=== PATIENT | female | born 1960 | race African-American/Black ===

== ENCOUNTER 2017-03-30 09:01 | Day surgery (SDC) | payer MEDICARE, MEDICAID ==
--- NOTE | 2017-03-30 07:21 | History and Physical Report ---
DATE: 03/30/2017. CHIEF COMPLAINT AND HISTORY OF CHIEF COMPLAINT: This patient was initially on the schedule dated February 24, 2017, for an implanted spinal catheter trial with hydromorphone to determine if the procedure would be of help with pain control. She had abnormal laboratory studies and this had to be rescheduled. Her pain is an intractable radiculitis. There have been no changes in her history and no injuries. Her diagnostics did show diffuse disc abnormalities and multilevel spondylosis. Her treatment history has been extensive and unsuccessful. She had a laminectomy stimulator placed in the past with no effect. PAST MEDICAL HISTORY: Hypertension, asthmatic bronchitis, blood disorder unknown. MEDICATIONS ON ADMISSION: To be provided. ALLERGIES: None listed. REVIEW OF SYSTEMS: The patient seems appropriate and in no acute distress. The remainder of the systems review shows headaches, asthmatic bronchitis, irregular heartbeat, degenerative arthritis, difficulty sleeping. SOCIAL HISTORY: Noncontributory. FAMILY HISTORY: Gastrointestinal disease. EMPLOYMENT STATUS: Off work. PHYSICAL EXAMINATION: General: Height and weight are not known. Vital Signs: Unavailable. HEENT: Within normal limits. Lungs: Clear. Heart: Regular rate and rhythm. Abdomen: Nontender. Musculoskeletal: Examination of the musculoskeletal system shows diffuse tenderness throughout the lumbar spine. Range of motion causes pain into both legs, somewhat more right than left. Ambulation: No assistive device utilized. Neurologic: Cranial nerves are intact. IMPRESSION: INTRACTABLE LUMBAR RADICULITIS, ICD-10 CODE M54.16 AND M54.17. PLAN: The patient is here for an implanted spinal catheter infusion trial with hydromorphone to determine if the implantation of a permanent system can be of any value in pain control. The potential risks, side effects, and complications including spinal cord injury, nerve root injury, and paralysis have all been discussed and reviewed. The patient understands, consents, and wants to move forward. An overnight stay will be evaluated because a dural puncture will be required with an epidural blood patch. This will require the patient remain flat for four hours and then slowly elevated for one hour. If during that period of time she is stable, she will be discharged. Otherwise she will be kept overnight for observation. ESE HECTOR, D.O. Date & Time JOB NUMBER: [id number] cc: Mason White
[~2017-03-30 09:01] MED LIST: ACETAMINOPHEN 1,000 MG/100 ML BTL IV ONE; CEFAZOLIN 2 Gram 2 GM/50 ML BAG IVPB ONE; FAMOTIDINE 20MG TABLET PO ONE; HYDROMORPHONE PF 2MG/ML AMP 0.004 MG in 0.9 % SODIUM CHLORIDE 10ML VIA 0.998 ML IV ONE; HYDROMORPHONE PF 2MG/ML AMP 2 MG in 0.9 % SODIUM CHLORIDE 500ML 499 ML IV ONE; MECLIZINE 25 MG TABLET PO ONE; METOCLOPRAMIDE 10 MG TABLET PO ONE
[2017-03-30] MEDS ORDERED: DIPHENHYDRAMINE HCL 25 MG CAPSULE PO PRN ×2 (13:03)
[2017-03-30] MEDS ORDERED: TEMAZEPAM 15 MG CAPSULE PO PRN ×2 (13:03)
[2017-03-30] MEDS ORDERED: ACETAMINOPHEN 325 MG TAB PO PRN ×2 (13:03)
[2017-03-30] MEDS ORDERED: RINGERS SOLUTION,LACTATED 1,000 ML IV SCH (13:03)
[2017-03-30] MEDS ORDERED: HYDROMORPHONE HCL 2 MG/ML VIAL IM PRN (13:03)
[2017-03-30] MEDS ORDERED: HYDROCODONE/APAP 7.5/325MG TABLET PO PRN ×2 (13:03)
[2017-03-30] MEDS ORDERED: METOCLOPRAMIDE HCL 10 MG/2 ML VIAL IVP PRN (13:03)
[2017-03-30] MEDS ORDERED: SENNOSIDES/DOCUSATE SODIUM UD CAPSULE PO PRN ×2 (13:03)
[2017-03-30] MEDS ORDERED: HYDROMORPHONE HCL 1 MG/ML CPJ IM PRN (13:03)
[2017-03-30] MEDS ORDERED: AL HYDROX/MAG HYDROX 30ML UD PO PRN (13:03)
[2017-03-30] MEDS ORDERED: DIPHENHYDRAMINE HCL IV 50 MG/ML VIAL IVP PRN ×2 (13:03)
[2017-03-30] MEDS ORDERED: METOCLOPRAMIDE 10 MG TABLET PO PRN (13:03)
[2017-03-30] MEDS ORDERED: OXYCODONE/APAP 10MG-325MG TABLET PO PRN (13:03)
[2017-03-30] MEDS ORDERED: NALOXONE 0.4 MG/1 ML VIAL IVP PRN (13:03)
[2017-03-30] MEDS ORDERED: ALBUTEROL HFA 8 GM INHALER INH PRN (13:04)
[2017-03-30] MEDS ORDERED: MIDAZOLAM HCL 2MG/2ML VIAL IV ONE (14:00)
[2017-03-30] MEDS ORDERED: PROPOFOL 10 MG/ML VIAL IV ONE (14:00)
[2017-03-30] MEDS ORDERED: FENTANYL PF 100MCG/2ML VIAL IV ONE (14:00)
[2017-03-30] MEDS ORDERED: *PACU ONLY* KETAMINE HCL 10 MG/ML (20ML) VIAL IV ONE (14:00)
[2017-03-30] MEDS ORDERED: LIDOCAINE 2% MDV (20MG/ML) 20ML VIAL IV ONE (14:00)
[2017-03-30] MEDS ORDERED: RINGERS SOLUTION,LACTATED 1,000 ML IV PRN (15:03)
[2017-03-30] MEDS ORDERED: BUPIVACAINE 0.5% W/EPI MPF 30 ML VIAL IVP ONE (16:05)
[2017-03-30] MEDS ORDERED: CEFAZOLIN 1G VIAL IM ONE (16:05)
[2017-03-30] MEDS ORDERED: LIDOCAINE 1% W/EPI 1:200,000 MPF 30ML SQ ONE (16:05)
[2017-03-30] MEDS: OXYCODONE/APAP 10MG-325MG TABLET PO PRN ×2 (17:54→18:56)
[2017-03-30] MEDS: CEFAZOLIN 2 Gram 2 GM/50 ML BAG IVPB SCH (20:16)
--- NOTE | 2017-03-30 20:42 | Operative Note - Ferro ---
DATE OF SURGERY: 03/30/17 PREOPERATIVE DIAGNOSES: 1. 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 2. LUMBAR RADICULIITS ICD-10 CODE = M54.16 AND M54.17. OPERATION: 1. FLUOROSCOPIC-GUIDED EPIDURAL ACCESS AT L2-3, PLACEMENT OF THIN-WALLED SPINAL CATHETER T-11. 2. DIAGNOSTIC MYELOGRAPHY WITH RADIOLOGIC SUPERVISION AND INTERPRETATION. 3. SPINAL OPIOID BOLUS HYDROMORPHONE 0.002 MG SPINAL SPACE. 4. INCISION, SUBCUTANEOUS DISSECTION, AND ANCHORING SPINAL CATHETER TO SUPRASPINOUS FASCIA USING ANCHORING DEVICE AND NONABSORBABLE SUTURE. 5. TUNNELING BETWEEN MIDLINE SPINAL CATHETER SITE AND RIGHT POSTERIOR SUPERIOR GLUTEAL MARGIN WITH CREATION OF SMALL SUBCUTANEOUS POUCH, TUNNELING CATHETER INTO POUCH. 6. RESECTING AND INTERFACING INDWELLING SPINAL CATHETER WITH SECOND CATHETER COMPONENT BY WAY OF CONNECTOR. TUNNELING SECOND CATHETER COMPONENT SUPERIOR 6 CM , EXITING SKIN. 7. INTERFACE EXTERNAL CATHETER WITH EXTERNAL INFUSION PUMP SET TO DELIVER HYDROMORPHONE AT 0.04 MG A DAY. 8. CLOSURE OF MIDLINE INCISION WITH VICRYL FOR FASCIA, RUNNING SUBCUTICULAR VICRYL FOR SKIN, DERMABOND CLOSURE. 9. CLOSURE OF RIGHT POSTERIOR POUCH WITH NYLON SUTURE. 10. EPIDURAL BLOOD PATCH 10 ML AUTOLOGOUS BLOOD DRAWN STERILE TECHNIQUE FROM LEFT ANTECUBITAL. SURGEON: ESE YOUNG D.O. ANESTHESIA: LOCAL SEDATION. ANESTHESIA PROVIDER: CLIFTON VELASQUEZ CRNA INDICATIONS: This patient presents with a history of intractable postlaminectomy radiculitis. Diagnostics confirming laminectomy at 4-5 and 5-1. She is here due to the failure of all therapy for an implanted spinal catheter infusion trial with Hydromorphone. The implanted catheter technique will be used to minimize side effects including dural puncture and spinal headaches as well as minimize the number of penetrations into the spinal space required. PROCEDURE: Intravenous line, vital sign monitoring, IV sedation, prepped and draped with sterile technique. Under imaging, above the laminectomy, the spinal interspace at L2-3 was marked, infiltrated using a #20 gauge spinal needle, paramedian approach, bevel with long axis inserted under AP and lateral imaging into the spinal space. No fasciculations noted. With CSF, a thin-walled spinal catheter was advanced, positioned at T11. Diagnostic myelography was performed. Resulting flow characteristics were smooth and linear in the space. With this confirmation, appropriate catheter with administration of bolus Hydromorphone 0.002 mg into the spinal space. The skin above and below the needle infiltrated , incision made and subcutaneous dissection was conducted to the supraspinous fascia. The needles were removed after a purse string suture to stop CSF leak was performed. The catheter was anchored to the supraspinous fascia using an anchoring device and nonabsorbable suture. The catheter was clamped to stop CSF leak. The skin above and below the needle infiltrated, incision made and subcutaneous dissection was used to widen the site for further pouch for anchoring of the catheter. At the right posterior gluteal margin, a site picked by the patient, skin infiltrated, incision made and subcutaneous dissection was conducted to form a small pouch. A tunneling tool was then used to carry the spinal catheter into the posterior pouch. The primary catheter was then interfaced with the second catheter by way of a connector. The second catheter was tunneled from this posterior pouch superior 6 cm exiting the skin. The midline incision was then closed with Vicryl for fascia, running subcuticular Vicryl for skin. The posterior gluteal pouch was then closed with nylon suture. The externalized catheter was then interfaced to an external pump, which was set to deliver Hydromorphone at 0.04 mg a day. At L3-4, which was one level below the dural puncture for the catheter and above the laminectomy, skin was infiltrated and an #18 gauge Tuohy needle with [id number] into the epidural space. 10 mL of autologous blood was drawn using sterile technique from the left antecubital. This blood was placed onto the field by using a sterile technique. An epidural blood patch was then performed with this blood with this specimen. Needle removed. Dressing was placed to secure the catheter. All components under sterile dressing. She was transported to the Recovery Room , pillow under head and knees flat. She will stay flat for four hours, slowly elevated for one of them and be evaluated for discharge. She tolerated the procedure without difficulty. DISCHARGE INSTRUCTIONS: 1. The sites are to remain clean and dry. No showering or bathing in any way that would disrupt dressings. If it happens, contact the Clinic for reinforcing. 2. Spinal opioid side effects including respiratory depression, nausea, vomiting , constipation, urinary retention, lightheadedness, or rash have been discussed and reviewed. 3. Standard medications resumed including Levaquin, the antibiotic, 500 mg once a day for 14 days. 4. The patient will be seen in the office in the next three to five days for probable increase. We will evaluate side effects at that time. All other instructions provided with numbers to contact if problems given. She will be discharged. cc: Dr. Nassar JOB NUMBER: [id number] MTDD
[2017-03-30] MEDS ORDERED: DIAZEPAM 5 MG TABLET PO SCH (22:00)
[2017-03-31] MEDS: OXYCODONE/APAP 10MG-325MG TABLET PO PRN ×2 (00:39→08:28)
[2017-03-31] MEDS: CEFAZOLIN 2 Gram 2 GM/50 ML BAG IVPB SCH (02:30)
[2017-03-31] MEDS ORDERED: UMECLIDINIUM BROMIDE (INCRUSE) 62.5MCG IH SCH (10:00)
--- NOTE | 2017-03-31 13:25 | RADIOLOGY REPORT ---
EXAM: AP LUMBAR SPINE HISTORY: PAIN PUMP TRIAL. TECHNIQUE: AP view of the lumbar spine was obtained. Comparison: None. FINDINGS: Pain pump catheter enters the lumbar spinal canal and extends cephalad to the mid T11 level. IMPRESSION: PAIN PUMP CATHETER TIP AT THE MID T11 LEVEL. JOB NUMBER: [id number] MTDD
== END 2017-03-31 09:00 | disposition home or self-care (01) ==
LOC: SUR 09:01 → MEDSURG 14:10 → SUR 03-31 09:21
PROVIDERS: ATTEND Pain Medicine Interventional Pain Medicine
DX: M96.1 Postlaminectomy syndrome, not elsewhere classified (principal); M54.16 Radiculopathy, lumbar region; M54.17 Radiculopathy, lumbosacral region; J44.9 Chronic obstructive pulmonary disease, unspecified; I10 Essential (primary) hypertension; F17.200 Nicotine dependence, unspecified, uncomplicated
CPT/HCPCS: 62350; 00630; 72020; 94640; Q9967; J3490; J3010; J0690 ×2; J1170; J7040

== ENCOUNTER 2017-04-13 06:43 | Day surgery (SDC) | payer MEDICARE, MEDICAID ==
--- NOTE | 2017-04-12 20:19 | History and Physical Report ---
DATE: 04/12/2017. CHIEF COMPLAINT AND HISTORY OF CHIEF COMPLAINT: This patient presents with a history of an intractable lumbar radiculitis which failed all conservative therapies. An implanted spinal catheter infusion trial with hydromorphone is ongoing with a current base rate of 0.18 mg delivered dose per day. Her pain level has dropped greater than 75 percent. Due to the failure of all therapies and the success of the implanted spinal catheter trial, she presents today for implantation of a permanent system. PAST MEDICAL HISTORY: Hypertension, asthmatic bronchitis, nonspecific blood disorder. MEDICATIONS ON ADMISSION: To be provided. ALLERGIES: None. REVIEW OF SYSTEMS: The patient is appropriate and in no acute distress. The remainder of the systems review shows headaches, asthma, irregular heartbeat, degenerative arthritis, depression, difficulty sleeping. SOCIAL HISTORY: Noncontributory. FAMILY HISTORY: Gastrointestinal surgery. EMPLOYMENT STATUS: Off work. PHYSICAL EXAMINATION: General: Height and weight unavailable. Vital Signs: Blood pressure 140/80. Musculoskeletal: Current examination shows diffuse tenderness throughout the lumbar spine. Range of motion does produce pain moving into the low back and into the lower extremities symmetrically and bilaterally. The dressings for an implanted spinal catheter infusion trial are all in place. Sensory russell are intact. Neurologic: Cranial nerves are intact. IMPRESSION: 1. INTRACTABLE LUMBAR RADICULITIS, ICD-10 CODE M54.16 AND M54.17. 2. IMPLANTED SPINAL CATHETER INFUSION TRIAL WITH HYDROMORPHONE. PLAN: Overall with respect to the device and the implanted trial, everything has gone quite smoothly. She is pleased. She continues to have some pain which goes into her right shoulder and arm, and there is some nonspecific tailbone pain. As indicated, the best the system will do is what she is getting at this point. If she is happy with that, then moving to an implant would make sense. If not, then we should remove the implanted catheter. She wants to move forward to implant the device. The procedure has been explained in detail. We will simply make the incision, implant the pump itself filled with hydromorphone, and interface to the indwelling catheter. The external components will be removed intact. She is not required to stay overnight but will be evaluated for that as necessary. All of the potential risks, side effects, and complications have been carefully reviewed and discussed. ESE YOUNG D.O. Date & Time JOB NUMBER: [id number] cc: Mason White
[~2017-04-13 06:43] MED LIST changes: +HYDROMORPHONE HCL 0.02 GM in 0.9 % SODIUM CHLORIDE 10ML VIA 20 ML IV ONE; +HYDROMORPHONE HCL/PF 0.002 MG in 0.9 % SODIUM CHLORIDE 10ML VIA 0.998 ML IVP ONE; -HYDROMORPHONE PF 2MG/ML AMP 0.004 MG in 0.9 % SODIUM CHLORIDE 10ML VIA 0.998 ML IV ONE; -HYDROMORPHONE PF 2MG/ML AMP 2 MG in 0.9 % SODIUM CHLORIDE 500ML 499 ML IV ONE
[2017-04-13] MEDS ORDERED: FENTANYL PF 100MCG/2ML VIAL IV ONE (13:47)
[2017-04-13] MEDS ORDERED: LIDOCAINE 1% W/EPI 1:200,000 MPF 30ML SQ ONE (13:47)
[2017-04-13] MEDS ORDERED: CEFAZOLIN 1G VIAL IM ONE (13:47)
[2017-04-13] MEDS ORDERED: OXYCODONE/APAP 10MG-325MG TABLET PO ONE (13:47)
[2017-04-13] MEDS ORDERED: BUPIVACAINE 0.5% (5MG/ML) PF 30ML VIAL IVP ONE (13:47)
--- NOTE | 2017-04-13 14:18 | Operative Note - Ferro ---
DATE OF SURGERY: 04/13/17 PREOPERATIVE DIAGNOSES: 1. INTRACTABLE LUMBAR RADICULITIS, ICD-10 CODE = M54.16 AND M54.17. 2. IMPLANTED SPINAL OPIOID INFUSION SYSTEM IMPLANTED CATHETER DILAUDID INFUSION. OPERATION: 1. INCISION, SUBCUTANEOUS DISSECTION, AND REMOVAL OF EXTERNALIZED SPINAL CATHETER. 2. INCISION, SUBCUTANEOUS DISSECTION, AND CREATION OF SUBCUTANEOUS POUCH AT RIGHT POSTERIOR GLUTEAL MARGIN FOR PLACEMENT OF PUMP IDENTIFIED MEDTRONIC PROGRAMMABLE 20 ML PROGRAMMABLE. 3. REVISION INTERNAL SPINAL CATHETER. RE-INTERFACE CATHETER WITH SECOND CATHETER COMPONENT BY WAY OF CONNECTOR. 4. PLACEMENT OF PUMP 20 ML PROGRAMMABLE PRE-FILLED HYDROMORPHONE 1 MG PER ML CONCENTRATION ONTO FIELD. INTERFACE PUMP WITH REVISED SPINAL CATHETER. 5. PLACEMENT OF PUMP INTO POUCH SECURING TO POSTERIOR FASCIA, TWO POINTS, USING PUMP EYELETS, NONABSORBABLE SUTURE. 6. PLACEMENT OF 24-GAUGE BRYANT NEEDLE INTO ACCESS PORT PROGRAMMABLE PUMP ASPIRATING 1 ML OF CATHETER CONTENTS CLEARING CATHETER OF OPIOID AND A CSF MIXTURE. 7. DIAGNOSTIC MYELOGRAPHY WITH RADIOLOGIC SUPERVISION AND INTERPRETATION THROUGH ACCESS PORT CONFIRMING CATHETER CONNECTION. NO LEAKS, KINKS. APPROPRIATE FLOW CHARACTERISTICS SPINAL CATHETER TIP T11. 8. PLACEMENT OF PUMP INTO POUCH SECURING AND CLOSURE OF INCISION VICRYL FOR FASCIA, RUNNING SUBCUTICULAR VICRYL FOR SKIN. DERMABOND CLOSURE. 9. PROGRAMMING OF PUMP TO DELIVER BY CONTINUOUS INFUSION HYDROMORPHONE AT 0.20 MG PER DAY. SURGEON: ESE YOUNG D.O. ANESTHESIA: LOCAL SEDATION. ANESTHESIA PROVIDER: CHRIS ELIZABETH CRNA INDICATION: This patient presents with a history of intractable lumbar radiculitis. Due to the failure of all therapies and implanted spinal catheter infusion trial was conducted with Hydromorphone with 75 plus-percent pain control; patient requesting implantation of a permanent system. PROCEDURE: Intravenous line, vital sign monitoring, IV sedation, prepped and draped with sterile technique. Under imaging, the externalized spinal catheter was from the external pump. Sterile prep, sterile technique, and under imaging, the incision for the interface between the external/internal catheter at the right posterior gluteal margin infiltrated with local, incision made, and subcutaneous dissection was conducted. The interface between external and internal catheter was identified, clamped, cut, and the externalized catheter was removed intact by pulling away from the incision. Subcutaneous dissection was then conducted to form a pouch of suitable size and depth for a pump identified as a Medtronic 20 mL Programmable. Antibiotic irrigation. Bovie for hemostasis. The indwelling catheter was then revised, resected, and interfaced with a second catheter component by way of a connector. This secondary catheter component would interface to pump. The pump was placed onto the field and 20 mL Programmable pre-filled 1 mg per mL concentration Hydromorphone. The resected catheter was then interfaced to the pump. The pump was then placed into the pouch and secured to the posterior fascia using nonabsorbable suture at two points. A 24-gauge Bryant needle was then inserted into the access port and 1 mL of catheter content was aspirated clearing catheter of opioid and a CSF mixture. Contrast was then injected through the access port; the resulting myelogram with radiologic supervision and interpretation showed the appropriate flow characteristics. No kinks. No bends. Catheter tip myelogram flow at T11 confirming functionality. With the pump in the pouch, the incision was closed Vicryl for fascia, running subcuticular Vicryl for skin. Dermabond closure system. She was transported to the Recovery Room, stable, showing no side-effects from the procedure or the sedation. The pump had been programmed in the room by continuous infusion 0.20 mg per day Hydromorphone. She tolerated without difficulty. DISCHARGE INSTRUCTIONS: 1. Sites will remain clean and dry. No showering or bathing in any way that would disrupt dressings. If it happens, contact the clinic. 2. Standard medications will be resumed including the antibiotic, Levaquin, 500 mg once a day for 7 more days. 3. Spinal opioid side-effects including; respiratory depression, nausea, vomiting, constipation, urinary retention, lightheadedness or rash have all been discussed and reviewed; if it happens contact the clinic or go to a local Emergency Room. All other instructions provided, numbers to contact, problems given. She will be discharged and seen in the office in 3-5 days. Her activity levels should stay low. The incision should stay clean and dry although showering is permitted with the Dermabond. cc: Dr. Nassar JOB NUMBER: [id number] MTDD
[2017-04-13] MEDS ORDERED: FENTANYL PF 0.25MG/5ML AMPUL IV ONE (15:07)
[2017-04-13] MEDS ORDERED: *PACU ONLY* KETAMINE HCL 10 MG/ML (20ML) VIAL IV ONE (15:07)
[2017-04-13] MEDS ORDERED: MIDAZOLAM HCL 2MG/2ML VIAL IV ONE (15:07)
[2017-04-13] MEDS ORDERED: PROPOFOL 10 MG/ML VIAL IV ONE (15:07)
[2017-04-13] MEDS ORDERED: LIDOCAINE 2% MDV (20MG/ML) 20ML VIAL IV ONE (15:07)
--- NOTE | 2017-04-14 08:14 | RADIOLOGY REPORT ---
EXAM: LUMBAR SPINE HISTORY: PAIN. TECHNIQUE: A single AP view of the lumbar spine was performed. FINDINGS: The pain pump tip is at the T11 level. The remainder of the examination is unremarkable. IMPRESSION: THE PAIN PUMP TIP IS AT THE T11 LEVEL. JOB NUMBER: [id number] MTDD
== END 2017-04-13 09:40 | disposition home or self-care (01) ==
LOC: SUR 06:43
PROVIDERS: ATTEND Pain Medicine Interventional Pain Medicine
DX: M54.16 Radiculopathy, lumbar region (principal); M54.17 Radiculopathy, lumbosacral region; I10 Essential (primary) hypertension; J45.909 Unspecified asthma, uncomplicated
CPT/HCPCS: 62350; 62362; 00630; 62367; 72020; Q9967; J1170; J3010; J0690; C1755

== ENCOUNTER 2017-09-28 08:33 | Day surgery (SDC) | payer MEDICARE, MEDICAID ==
[2017-09-28] MEDS ORDERED: LIDOCAINE 1% W/EPI 1:200,000 MPF 30ML SQ ONE (08:34)
[2017-09-28] MEDS ORDERED: MORPHINE SULFATE 5 MG/ML PFS IVP ONE (08:34)
[2017-09-28] MEDS ORDERED: DEXAMETHASONE PRESERVATIVE FREE 10MG/ML VIAL IV ONE (08:34)
[2017-09-28] MEDS ORDERED: MIDAZOLAM HCL 2MG/2ML VIAL IV ONE (08:34)
[2017-09-28] MEDS ORDERED: FENTANYL PF 100MCG/2ML VIAL IV ONE (08:34)
[2017-09-28] MEDS ORDERED: BUPIVACAINE 0.5% W/EPI MPF 30 ML VIAL IVP ONE (08:34)
[2017-09-28] MEDS ORDERED: PROPOFOL 10 MG/ML VIAL IV ONE (08:34)
--- NOTE | 2017-09-28 21:45 | Operative Note - Ferro ---
DATE OF SURGERY: 09/28/17 PREOPERATIVE DIAGNOSIS: CERVICAL SPONDYLOSIS WITHOUT MYELOPATHY, ICD-10 CODE = M47.816. SURGERY: RADIOFREQUENCY RHIZOTOMY LEFT CERVICAL FACETS 3/4, 4/5, 5/6, AND 6/7. SURGEON: ESE YOUNG D.O. ANESTHESIA: LOCAL SEDATION. INDICATIONS: This patient presents with primary neck pain. Examination showed tenderness in the cervical spine with left range of motion causing pain to the neck with extension. Diagnostics showed diffuse multilevel spondylosis. Surgery : A facet series 75+% pain control with facet series done to the left. SURGERY: Intravenous line, vital sign monitoring, IV sedation, prepped, draped , sterile technique. Cervical facet levels in the area of pain were identified and marked at 3/4, 4/5, 5/6, and 6/7. Each one of these points on the skin infiltrated with #22 gauge rhizotomy cannula positioned, stimulator trials conducted. Rhizotomy burn performed. Local and anti-inflammatory into sites. Topical left marked and infiltrated. A 22-gauge rhizotomy cannula positioned. Stimulation trials conducted. Rhizotomy burn performed. Local with anti- inflammatory into the sites. Topical antibiotic and sterile dressing applied. Will monitor and evaluate. cc: Dr. Dorinda Nassar JOB NUMBER: [id number] MTDD
== END 2017-09-28 11:35 | disposition home or self-care (01) ==
LOC: SUR 08:33
PROVIDERS: ATTEND Pain Medicine Interventional Pain Medicine
DX: M47.816 Spondylosis without myelopathy or radiculopathy, lumbar region (principal); I10 Essential (primary) hypertension; J44.9 Chronic obstructive pulmonary disease, unspecified
CPT/HCPCS: 64633; 64634 ×3; 01936; J1100; J3010; J2270